=== PATIENT | female | born 1950 | race Native Hawaiian/Other Pacific Islander ===

== ENCOUNTER 2016-08-20 12:49 | Outpatient (CLI) | payer OTHER | END 2016-08-20 23:05 | disposition home or self-care (01) | LOC: RAD 12:49 | DX: M25.562 Pain in left knee (principal); R60.0 Localized edema ==

== ENCOUNTER 2016-09-17 12:47 | Outpatient (CLI) | payer OTHER | END 2016-09-17 19:53 | disposition home or self-care (01) | LOC: MAMMO 12:47 | DX: Z12.31 Encounter for screening mammogram for malignant neoplasm of breast (principal) | CPT/HCPCS: G0202-TC ==

== ENCOUNTER 2016-12-31 13:46 | Outpatient (CLI) | payer OTHER | END 2016-12-31 14:50 | disposition home or self-care (01) | LOC: RAD 13:46 | DX: M25.572 Pain in left ankle and joints of left foot (principal) ==

== ENCOUNTER 2017-07-15 14:22 | Outpatient (CLI) | payer OTHER | END 2017-07-15 20:42 | disposition home or self-care (01) | LOC: RAD 14:22 | DX: M25.562 Pain in left knee (principal) ==

== ENCOUNTER 2018-11-19 12:53 | Outpatient (CLI) | payer OTHER | END 2018-11-19 19:14 | disposition home or self-care (01) | LOC: RAD 12:53 | DX: M25.561 Pain in right knee (principal); M25.562 Pain in left knee; M25.512 Pain in left shoulder ==